=== PATIENT | male | born 1985 | race African-American/Black ===

== ENCOUNTER 2016-10-26 09:03 | Emergency (ER) | payer OTHER ==
[~2016-10-26] VITALS: Ht 167.6 cm; Wt 77.9 kg
[2016-10-26 09:14] VITALS: TEMP 36.8; Ht 167.6 cm; Wt 77.9 kg
[2016-10-26] MEDS ORDERED: PROPARACAINE HCL 0.5% OP SOLN 15 ML BTL OP STA (10:11)
--- NOTE | 2016-10-26 10:51 | DIAGNOSTIC IMAGING REPORT ---
CT OF THE HEAD WITHOUT CONTRAST CLINICAL HISTORY: Fall. COMPARISON STUDY: No previous studies for comparison. TECHNIQUE: Helical axial images of the head were obtained without IV contrast. Automated exposure control was utilized for the study. A dose lowering technique was utilized adhering to the principles of ALARA. FINDINGS: No acute intracranial hemorrhage, midline shift or mass effect is present. Ventricular system is normal. Basilar cisterns are patent. There are no extra-axial collections. [place]-white differentiation is maintained. There is no calvarial fracture. IMPRESSION: 1. No acute intracranial findings. 2. No calvarial fracture. Electronically signed by: Casper Ayala M.D. 10/26/2016 10:50 AM Dictated Date/Time: 10/26/2016 10:49 AM
--- NOTE | 2016-10-26 10:52 | DIAGNOSTIC IMAGING REPORT ---
CERVICAL SPINE W/O CT DOSE: 1141.78 mGy.cm HISTORY: Trauma. Neuropathy. fall, posterior neck pain, upper arm numbness TECHNIQUE: Multiaxial CT images of the cervical spine were performed and reformatted in the sagittal and coronal plane without the use of contrast. A dose lowering technique was utilized adhering to the principles of ALARA. COMPARISON: None. FINDINGS: No fractures. No subluxation. Prevertebral soft tissues and the C1-C2 interval are intact. No pneumothorax. IMPRESSION: No fractures within the cervical spine. The above report was generated using voice recognition software. It may contain grammatical, syntax or spelling errors. Electronically signed by: Michael Uriostegui M.D. 10/26/2016 10:50 AM Dictated Date/Time: 10/26/2016 10:49 AM
[2016-10-26] MEDS ORDERED: KETOROLAC TROMETHAMINE 60 MG/2 ML VIAL IM STA (11:19)
--- NOTE | 2016-10-26 11:55 | EMERGENCY ROOM VISIT NOTE ---
History First contact with patient: 09:43 Chief Complaint: NECK PAIN Stated Complaint: FALL/NECK PAIN History of Present Illness The patient is a 31 year old male who presents to the Emergency Room with complaints of neck pain. The patient was distraught and he was in his penitentiary cell and wanted to commit suicide. The patient jumped off the sink and landed into a wall. He felt his neck twisted but is unsure exactly what happened. He noted some tingling in his arms and legs. The legs are resolved. He has some persistent tingling in his arms. He was out of control for the officers and required to be peppered sprayed. He then had his eyes flushed. The patient has EMS summoned. He was immobilized and brought here for further evaluation. No medication given prehospital. Pt denies LOC, current headache, visual changes, chest pain, breathing difficulties, nausea, vomiting, abdominal pain, back pain, extremity pain, weakness, open wounds, active bleeding, or other complaints. Review of Systems See HPI for pertinent positives and negatives. A total of ten systems were reviewed and were otherwise negative. Past Medical/Surgical History Medical Problems: (1) Allergy to amoxicillin (2) Asthma Social History Smoking Status: Never Smoker Current/Historical Medications Unable to Obtain Active Prescriptions or Reported Meds Physical Exam Vital Signs Date Time Temp Pulse Resp B/P (MAP) Pulse Ox O2 Delivery O2 Flow Rate FiO2 10/26/16 13:23 81 16 132/76 100 Room Air 10/26/16 12:41 70 16 131/81 100 Room Air 10/26/16 10:58 67 18 131/81 100 Room Air 10/26/16 09:14 36.8 76 18 153/86 100 Room Air Physical Exam GENERAL: Awake, alert, well appearing, no acute distress HEAD: Normocephalic, atraumatic. No cabrera sign. No raccoon eyes. EYES: Normal conjunctiva. PERRL. EARS: External ears normal. Right TM normal. Left TM normal. NOSE: Atraumatic OROPHARYNX: Lips, tongue, and mucosa unremarkable. No erythema or exudate. NECK: Cervical collar in place. No tracheal deviation or JVD. Moderate lower posterior midline tenderness. No step offs noted. RESPIRATORY: CTA bilaterally CARDIAC: Regular rate, normal rhythm. ABDOMEN: Inspection reveals no abnormalities. Soft, non distended. No tenderness to palpation. No hernias. BACK: No midline step offs or tenderness to palpation. Unremarkable. PELVIS: Stable to rock. SKIN: Normal. LYMPH: No adenopathy. MUSCULOSKELETAL: Upper and lower extremities are atraumatic. NEURO: GCS 15. Normal sensorium. No sensory or motor deficits noted except subjective tingling in the hands however is able to complete all myotomes testing for the upper extremities Medical Decision & Procedures ER Provider Diagnostic Interpretation: CT scan of the head and cervical spine were negative for any traumatic pathology. CERVICAL WITHOUT CONTRAST HISTORY: Trauma trauma, neck pain, upper extremity numbness TECHNIQUE: Multiplanar multisequence MRI of the cervical spine was performed without the use of contrast. COMPARISON STUDY: CT cervical spine same date FINDINGS: Signal characteristics of the vertebral bodies are unremarkable. No bone marrow replacing process. C2-C3: No significant central canal or neural foraminal narrowing. C3-C4: No significant central canal or neural foraminal narrowing. C4-C5: No significant central canal or neural foraminal narrowing. C5-C6: Mild central disc herniation. Contact with the anterior cervical cord but no deformity or displacement of that structure. Neuroforamina are patent bilaterally. C6-C7: No significant central canal or neural foraminal narrowing. C7-T1: Mild central disc herniation. Contact with but only minimal deformity of the cervical cord. Neural foramina patent bilaterally. IMPRESSION: 1. Mild central disc herniations at C5-C6 and C7-T1. 2. Impact upon the cervical cord is minimal /mild at C7-T1, and minimal at C5-C6 3. Otherwise negative study. Medications Administered Medications (Trade) Dose Ordered Sig/Pepe Route Start Time Stop Time Status Last Admin Dose Admin Proparacaine HCl (Alcaine 0.5% Oph Soln) 2 drops NOW STAT OP 10/26/16 10:11 10/26/16 10:13 DC 10/26/16 10:19 2 DROPS Ketorolac Tromethamine (Toradol Inj) 60 mg NOW STAT IM 10/26/16 11:19 10/26/16 11:20 DC 10/26/16 11:29 60 MG Medical Decision Triage Nursing notes reviewed. The patient's presentation and history were concerning for neck pain after a fall. Etiologies such as fracture, dislocation, central cord syndrome, ligamentous injury, soft tissue injury, intra-abdominal, intrathoracic, intracranial as well as other traumatic pathologies were entertained. The patient was evaluated. He was taken to CT imaging which revealed no evidence of intracranial or cervical spine pathology. The patient was given IM Toradol. Because of the neurologic complaints and MRI was ordered. An MRI was performed. This did show some mild disc disease but no significant cord edema or worrisome findings. I did discuss the case with orthopedic spine , Dr. Wolfe. He felt that the patient should do well with a soft collar and anti-inflammatories. He will be available to see the patient if symptoms persist after 5-7 days of conservative management. The patient's guards were informed. Return instructions were outlined. The patient was reassessed and was doing well. A soft cervical collar was ordered as per spine's instructions. Patient was pleased with the treatment and was discharged in stable condition. I did advise for suicide precautions from the penitentiary standpoint. By the evaluation outlined above other emergent etiologies such as those listed in the differential, as well as others, were deemed relatively unlikely. The patient was educated about the findings as listed above. All questions were answered and the patient was pleased with the treatment. Return instructions were outlined and the patient was discharged in stable condition. The patient was referred to [facility] and possibly orthopedic spine for follow-up for a recheck of the current condition. Impression Primary Impression: Acute neck pain Additional Impressions: Cervical disc disease Suicidal ideation Departure Information Dispostion Home / Self-Care Prescriptions Unable to Obtain Active Prescriptions or Reported Meds Referrals Priti CHU (PCP) Patient Instructions My [facility] Problem Qualifiers
--- NOTE | 2016-10-26 12:44 | DIAGNOSTIC IMAGING REPORT ---
CERVICAL WITHOUT CONTRAST HISTORY: Trauma trauma, neck pain, upper extremity numbness TECHNIQUE: Multiplanar multisequence MRI of the cervical spine was performed without the use of contrast. COMPARISON STUDY: CT cervical spine same date FINDINGS: Signal characteristics of the vertebral bodies are unremarkable. No bone marrow replacing process. C2-C3: No significant central canal or neural foraminal narrowing. C3-C4: No significant central canal or neural foraminal narrowing. C4-C5: No significant central canal or neural foraminal narrowing. C5-C6: Mild central disc herniation. Contact with the anterior cervical cord but no deformity or displacement of that structure. Neuroforamina are patent bilaterally. C6-C7: No significant central canal or neural foraminal narrowing. C7-T1: Mild central disc herniation. Contact with but only minimal deformity of the cervical cord. Neural foramina patent bilaterally. IMPRESSION: 1. Mild central disc herniations at C5-C6 and C7-T1. 2. Impact upon the cervical cord is minimal /mild at C7-T1, and minimal at C5-C6 3. Otherwise negative study. The above report was generated using voice recognition software. It may contain grammatical, syntax or spelling errors. Electronically signed by: Michale Uriostegui M.D. 10/26/2016 12:42 PM Dictated Date/Time: 10/26/2016 12:38 PM
[2016-10-26 13:23] VITALS: BP 132/76; PULSE 81; O2SAT 100
== END 2016-10-26 13:31 | disposition home or self-care (01) ==
LOC: EDBD 09:03 → C.EDA 09:04
DX: M54.2 Cervicalgia (principal); W22.8XXA Striking against or struck by other objects, initial encounter; Y92.143 Cell of prison as the place of occurrence of the external cause; R45.851 Suicidal ideations; M50.90 Cervical disc disorder, unspecified, unspecified cervical region; J45.909 Unspecified asthma, uncomplicated